=== PATIENT | female | born 1930 | race Caucasian/White ===

== ENCOUNTER 2018-10-30 13:03 | Emergency (ER) | payer OTHER, MEDICAID ==
[~2018-10-30] VITALS: Ht 157.5 cm; Wt 66.7 kg
[~2018-10-30 13:03] MED LIST: AMOXIL500 MG PO; BEN25 PO; CEPACOL SORE TH1 LO4 MM; COMBIGAN5 ML OU; DUONEB3 ML NEB; ECO81 PO; L20 PO; LAC PO; LEVOTHYROXIN0.075 M2 PO; LOTENSIN10 MG PO; LUMIGAN2.5 M1 OU; MEDDP PO; REM15 PO; TEMAZEPAM30 MG PO; TOP50 PO; XAN5 PO; ZANTAC 150150 MG PO; ZOCOR20 MG PO
[2018-10-30 13:10] VITALS: Ht 157.5 cm; Wt 66.7 kg
[2018-10-30 16:07] VITALS: BP 145/70
== END 2018-10-30 16:07 | disposition home or self-care (01) ==
LOC: ED 13:03
DX: H92.02 Otalgia, left ear (principal); I10 Essential (primary) hypertension; Z98.890 Other specified postprocedural states